=== PATIENT | male | born 1965 | race Caucasian/White ===

== ENCOUNTER 2016-11-25 13:06 | Emergency (ER) | payer BC, OTHER ==
[~2016-11-25] VITALS: Ht 157.5 cm; Wt 72.6 kg
--- NOTE | 2016-11-25 14:21 | NUR ---
Pt ambulatory to bed 5a, dr sosa at bedside for exam.
--- NOTE | 2016-11-25 14:22 | NUR ---
suture set-up at bedside.
[2016-11-25] MEDS ORDERED: LIDOCAINE HCL 1% 20 ML VIAL IJ ONE (14:30)
[2016-11-25] MEDS ORDERED: LIDOCAINE HCL 1% 20 ML VIAL ONE (14:31)
[2016-11-25] MEDS ORDERED: BACITRACIN/POLYMYXIN B OINT 15 GM TUBE TOP ONE (14:45)
--- NOTE | 2016-11-25 14:52 | NUR ---
sterile dressing applied to lt hand , pt has good cms to all extremites, pt dc;ed home w/ aci.
[2016-11-25 14:53] VITALS: BP 124/78
[2016-11-25] MEDS ORDERED: NEOMY/BACITRA/POLYMYXIN B OINT UD PACKET TP ONE (14:54)
== END 2016-11-25 14:54 | disposition home or self-care (01) ==
LOC: ER 13:06
DX: S61.211A Laceration without foreign body of left index finger without damage to nail, initial encounter (principal); W26.0XXA Contact with knife, initial encounter; Y93.89 Activity, other specified; Y99.8 Other external cause status; Y92.89 Other specified places as the place of occurrence of the external cause
CPT/HCPCS: A4663; J3490

== ENCOUNTER 2016-12-02 13:22 | Emergency (ER) | payer OTHER ==
[~2016-12-02] VITALS: Ht 160 cm; Wt 68.0 kg
--- NOTE | 2016-12-02 13:34 | NUR ---
Patient discharged to home in stable conditon. Written and verbal after care instructions given to patient. Patient verbalizes understanding of instructions.
== END 2016-12-02 13:37 | disposition home or self-care (01) ==
LOC: ER 13:22
DX: S61.211D Laceration without foreign body of left index finger without damage to nail, subsequent encounter (principal); X58.XXXD Exposure to other specified factors, subsequent encounter; Y99.8 Other external cause status; Y92.89 Other specified places as the place of occurrence of the external cause
CPT/HCPCS: A4663

== ENCOUNTER → 2018-05-03 | Emergency (ER) | payer OTHER ==
[~2018-05-03] VITALS: Ht 154.9 cm; Wt 66.7 kg
[~2018-05-03] MED LIST: ACETAMINOPHEN ES 500 MG TABLET ONE; ACETAMINOPHEN ES 500 MG TABLET PO ONE
--- NOTE | 2018-05-03 14:12 | NUR ---
at bedside to see and examine patient.
--- NOTE | 2018-05-03 15:04 | NUR ---
Dcd. instructions provided to patient and he was instructed to make a follow up appointment with PCP workers comp. paper documentation also handed. Educated to monitor for worsening symptoms and come back to ER. if needed it.
== END | disposition home or self-care (01) ==
LOC: ER 14:04
DX: S62.667A Nondisplaced fracture of distal phalanx of left little finger, initial encounter for closed fracture (principal); W20.8XXA Other cause of strike by thrown, projected or falling object, initial encounter; Y93.89 Activity, other specified; Y92.89 Other specified places as the place of occurrence of the external cause; Y99.8 Other external cause status
CPT/HCPCS: 73140; A4663; A9150